=== PATIENT | male | born 1955 | race Caucasian/White ===

== ENCOUNTER → 2018-07-10 | Outpatient (CLI) | payer OTHER ==
--- NOTE | 2018-07-10 17:28 | PCVCIMAG ---
EXAM: ULTRASOUND OF THE LEFT BREAST INDICATION: Breast nodule. FINDINGS: 0.7 x 2.2 x 2.4 cm solid subcutaneous nodule in the superior left breast at the 12:00 position. This lesion is indeterminate and malignancy cannot be excluded. It has a slightly irregular margin. No additional lesions are identified. IMPRESSION: 2.4 cm solid subcutaneous slightly irregular nodule is indeterminate. Further evaluation by surgery for consideration for excision is suggested. Results were directly discussed with Dr. Koenig. LOC:[id number]
== END | disposition home or self-care (01) ==
LOC: PCVCIMAG 15:03
PROVIDERS: ATTEND Internal Medicine Cardiovascular Disease
DX: N60.02 Solitary cyst of left breast (principal); N63.0 Unspecified lump in unspecified breast
CPT/HCPCS: 76642

== ENCOUNTER → 2018-08-26 | Outpatient (CLI) | payer OTHER ==
--- NOTE | 2018-08-26 14:36 | PCVCIMAG ---
APPROVED REPORT Study performed: 08/26/2018 13:37:29 Exam: Stress Echocardiogram Indication: CAD s/p CABG, Hyperlipidemia, Hypertension Patient Location: Echo lab Stress Nurse: Maria Del Carmen Martin RN Status: routine Ht: 6 ft 1 in HR: 79 bpm BP: 140/80 mmHg Rhythm: NSR Medical History Medical History: CAD s/p CABG, Hyperlipidemia, HTN, Mitral Valve Repair Procedure The patient underwent an Exercise Stress Test using the Larry Protocol. Blood pressure, heart rate, and EKG were monitored. An Echocardiogram was performed by mechanical test technician in four stages in quad fashion. At peak stress, four selected images were obtained and placed side by side with resting images for comparison. Stress Test Details Stress Test: Exercise stress testing was performed using a Larry protocol. HR Resting HR: 79 bpmMax Heart Rate (APMHR): 157 bpm Max HR Achieved: 144 bpmTarget HR (85% APMHR): 133 bpm % of APMHR: 91 Recovery HR: 86 bpm HR response to stress: Normal HR response to stress BP Resting BP: 140/80 mmHg Max BP: 156/78 mmHg Recovery BP: 138/78 mmHg BP response to stress: Normal blood pressure response to stress. ECG Resting ECG: Sinus Rhythm Stress ECG: Sinus Rhythm Arrhythmia: VPC's Recovery ECG: Sinus Rhythm Clinical Reason for Termination: Maximal effort Exercise duration: 5 min sec Highest Stage Achieved: Stage 2: 2.5 mph at 12% grade. Exercise capacity: 7.00 METs Overall Exercise Capacity for Age: Poor Pre-Stress Echo The resting Echocardiogram showed normal left ventricular contractility with an estimated Ejection Fraction of about 55-60%. Normal wall motion in all segments on baseline images. Post-Stress Echo The stress Echocardiogram showed normal left ventricular contractility with an estimated Ejection Fraction of about 60-65%. Normal augmentation of wall motion in all segments on post stress images. Clinical No clinical or ECG evidence for ischemia. Conclusion Clinical Response: Non-ischemic Exercise Capacity: Below Average Stress ECG Response: Non-ischemic Stress Echo Images: Non-ischemic The left ventricle is normal in size and wall thickness in both the rest and stress images. Other Information Study Quality: Good <Conclusion> The left ventricle is normal in size and wall thickness in both the rest and stress images.
== END | disposition home or self-care (01) ==
LOC: PCVCIMAG 13:06
PROVIDERS: ATTEND Internal Medicine Cardiovascular Disease
DX: I25.10 Atherosclerotic heart disease of native coronary artery without angina pectoris (principal); E78.5 Hyperlipidemia, unspecified; I10 Essential (primary) hypertension; Z95.1 Presence of aortocoronary bypass graft
CPT/HCPCS: 93325; 93351